=== PATIENT | male | born 1995 | race Caucasian/White ===

== ENCOUNTER → 2021-12-16 02:29 | Outpatient (CLI) | payer BC, SELFPAY ==
[2021-12-16 15:13] LABS: SARS-CoV-2 RNA PCR Negative
== END ==
PROVIDERS: Visit Provider Otolaryngology
DX: Z01.812 Encounter for preprocedural laboratory examination (principal); Z20.822 Contact with and (suspected) exposure to COVID-19
CPT/HCPCS: C9803; U0003; U0005

== ENCOUNTER 2021-12-19 00:27 | Day surgery (SDC) | payer BC, SELFPAY ==
[2021-12-15 14:41] VITALS: BMI 24.3
--- NOTE | 2021-12-15 14:50 | PC.NURSE ---
Report to the Outpatient Waiting Room, entrance under the green pavilion located off [facility], at time 0930 on date 12/19/21 . OR Time: ____1129____. - You and your visitor will be asked a series of questions to screen for COVID 19 for your protection. - A mask is required within the hospital. - Only one visitor is allowed at this time. Patient visitors will be guided where to wait when not with patient. Preoperative COVID Testing Requirements: No COVID Test needed if: (proof is required; if not received patient will have Rapid Test prior to entry) - Patient has received COVID Vaccine at least 14 days prior to procedure date or - Patient has positive COVID test result within last 90 days of surgery date. COVID Test needed if above criteria is not met If not COVID vaccinated a COVID test must be conducted within 72 hours of surgery and patient is asked to isolate self from time of testing until procedure. You will go to the [employer] [facility] for your COVID testing. The [employer] [facility] is located at the corner of [address] [facility]. You will only be called if COVID results are positive and your surgeon may reschedule your elective surgery date. Patients may have clear liquids (water, carbonated beverages, clear teas, apple juice) until 3 hours prior to surgery with a maximum of 20 ounces. - No food from midnight until time of surgery - Infants may have breast milk until 4 hours before surgery, formula 6 hours prior to surgery. - Children will be allowed to drink immediately following surgery. If applicable, please bring a bottle or sippy cup to assist with drinking. Juice, water, soda, and popsicles are readily available. For infants on formula, please bring formula the day of surgery. Pacifiers are allowed. Take the following medications with a SIP of water the morning of surgery: __if needed nasal spray Medications to discontinue per physician __any vitamins or suppplement 3 days prior to surgery Date to take last dose Please no make-up, nail serbian, hairspray, perfume, deodorant, or body powder the day of surgery. No jewelry (including any body piercings) or valuables the day of surgery, leave them at home. Please take a shower or bath the night before, or the morning of, surgery with an antibacterial soap. Wear comfortable, loose fitting clothing. Children are encouraged to wear pajamas. - Jewelry must be removed prior to entering the operating room. Rings and piercings that are not removed may be cut off. - The hospital will not accept responsibility for valuables. - Please leave all valuables, including medications, at home the day of surgery. If you are going home after surgery, a licensed cattle driver must drive you home. - NO public transportation without another adult. - We recommend that an adult stay with you for 24 hours following discharge. - We also recommend that you do not drive, make important decision, drink alcoholic beverages, or take any drugs that were not prescribed by your health care provider for at least 24 hours after your discharge time. For Pediatric surgeries, we recommend two adults accompany the child home (only one inside the building at this time). Follow any additional instructions given to you from your surgeon. Telephone instructions given to __patient and asked if any additional questions and then verbalized understanding. Patient advised to call surgeon office or pre surgery nurse liaison [phone] if any additional questions.
--- NOTE | 2021-12-18 09:21 | PM.IMHP ---
H&P: HPI History of Present Illness Date/Time: 12/18/21 09:21 Chief Complaint: nasal obstruction nasal congestion nasopharyngeal cyst adenoid hypertrophy septal deviation turbinate hypertrophy Narrative: patient presents for planned surgical procedure no change in symptoms no change in history Review of Systems Constitutional: Constitutional: Denies fatigue, Denies fever(s) and Denies lethargy Eyes: Eyes: Denies blurry vision and Denies change in vision ENT: Reports as per HPI Cardiovascular: Cardiovascular: Denies chest pain Respiratory: Respiratory: Denies cough Endocrine: Endocrine: Denies fatigue Hematologic/Lymphatic: Hematologic/Lymphatic: Denies easy bleeding, Denies easy bruising and Denies lymphadenopathy Allergic/Immunologic: Allergic/Immunologic: Denies seasonal rhinorrhea [facility] Social History Social History Smoking status: Never smoker Second hand tobacco smoke exposure: No Alcohol intake: never Substance use: never Substance use type: does not use Spiritual care concerns: No Meds Home Medications and Allergies Home Medications Medication Instructions Recorded Confirmed Type fluticasone propionate 50 2 spray INTRANASAL BID #16 ml 11/12/21 12/15/21 Rx mcg/actuation nasal spray,suspension Allergies Allergy/AdvReac Type Severity Reaction Status Date / Time No Known Allergies Allergy Mild Verified 12/15/21 14:33 Exam Const: General: cooperative, healthy appearing, comfortable, well developed and alert HENMT: Head: normal to inspection, normocephalic and atraumatic Ears: hearing grossly normal bilaterally, external ears normal, TM's normal bilaterally and EAC's normal General nose exam: Normal external nose present, Normal nares present, No nasal polyps present, mucous membranes and turbinates abnormal, abnormal septum and Other nasal findings present ( Septal deviation turbinate hypertrophy) Face and sinus: normal facial exam Mouth: Yes Normal oral and palatal mucosa present, Yes lip normal, Yes tongue normal, Yes oropharynx normal and Yes moist mucous membranes Teeth and gingiva: dentition normal and gingiva normal Throat: posterior oropharynx normal, tonsils normal and uvula midline Eyes: General: appearance normal, both eyes and all related structures Periorbital: periorbital findings normal Eyelids: eyelids normal Conjunctivae: conjunctivae normal Sclera: sclerae normal Neck: Neck: normal visual inspection, full ROM and no lymphadenopathy Thyroid: thyroid normal Lymphatic: no lymphadenopathy noted Resp: Effort & Inspection: normal respiratory effort and able to speak in complete sentences Cardio: Jugular venous distension: no JVD Neuro: Cranial nerves: Yes CN's II-XII intact bilaterally Assessment and Plan Assessment and plan (1) Adenoid hypertrophy: Code(s): J35.2 - Hypertrophy of adenoids Status: Acute Assessment and Plan: plan is for the operating room endoscopic assisted septoplasty inferior turbinate reduction with outfracture resection of nasopharyngeal cysts/adenoid tissue transnasally. Will need suction Bovie electrocautery. Total operative time 1:00 a.m.. Risks were discussed including bleeding infection damage to any structure from the clavicle up. Septal perforation postoperative bleeding postoperative pain need for postoperative pain medication need for time off work need for further procedures CSF leak brain damage blindness change in vision. Patient voiced understanding to all these risks to the potential benefits to any cost associated with this. (2) Pharyngeal or nasopharyngeal cyst: Code(s): J39.2 - Other diseases of pharynx Status: Acute (3) Hypertrophy of both inferior nasal turbinates: Code(s): J34.3 - Hypertrophy of nasal turbinates Status: Acute (4) Nasal septal deviation: Code(s): J34.2 - Deviated nasal septum
[2021-12-19] VITALS (11 sets, daily range): BP systolic 109–146; BP diastolic 55–89; PULSE 69–94; RESP 12–16; TEMP 36.2–36.7; O2SAT 95–100
--- NOTE | 2021-12-19 07:13 | WPDHPUPDATE1 ---
History and Physical Update Update Date/Time: 12/19/21 07:13 History and Physical has been reviewed, including an updated exam of the patient. There are NO changes in the patient's condition. Risks, benefits, and alternatives have been discussed and questions answered. Patient agrees to proceed with procedure.
[2021-12-19] MEDS: ACETAMINOPHEN 500 MG TABLET 1000 MG PO (10:02)
[2021-12-19] MEDS: LACTATED RINGERS 1,000 ML 30 ML IV CONT ×2 (10:03→12:40)
--- NOTE | 2021-12-19 10:04 | P.PNAN_ITS ---
Anes - Initial Pre Proc Eval Procedure: Operation Date: 12/19/21 11:30 Proposed Procedures p Resection Nasopharyngeal Cyst, Bilateral Inferior Turbinectomy, - Edmar Pandey MD s Septoplasty, - Edmar Pandey MD s Adenoidectomy - Edmar Pandey MD Date/Time: 12/19/21 10:04 Surgeon: Edmar Pandey MD Pre Op Diagnosis: nasal pharyngeal cyst Patient Data Age: 26 Gender: M Height: 1.78 m Weight: 76.9 kg Last Vital Signs Temp 36.7 C 12/19/21 09:58 Pulse 81 12/19/21 09:58 Resp 16 12/19/21 09:58 BP 146/89 H 12/19/21 09:58 Pulse Ox 100 12/19/21 09:58 Allergies Allergy/AdvReac Type Severity Reaction Status Date / Time No Known Allergies Allergy Mild Verified 12/19/21 09:55 Home Medications Medication Instructions Recorded Confirmed Type fluticasone propionate 50 2 spray INTRANASAL BID #16 ml 11/12/21 12/19/21 Rx mcg/actuation nasal spray,suspension Patient hx anesthesia problems: none Family hx anesthesia problems: none Results Review: All pre-operative results and documents have been reviewed as part of the pre-operative evaluation. [facility] Social History Social History Smoking status: Never smoker Second hand tobacco smoke exposure: No Alcohol intake: never Substance use: never Substance use type: does not use Living arrangements: with family Spiritual care concerns: No Anes - Eval Final PreProcedure Day of Procedure 12/19/21 10:04 Patient weight: normal Heart: regular rate and rhythm Lungs: clear to auscultation Airway: Mallampati scale class 1 Neurological: alert and oriented Last oral intake: >/= 8 hours ASA classification: I Emergent: no Anesthetic plan: proceed Anesthesia type and monitoring: general ETT and standard monitoring Results Review: All pre-operative results and documents have been reviewed as part of the pre-operative evaluation. Informed Consent: The patient's anesthetic plan and its attendant risks and benefits were discussed with the patient/family/POA. Questions were solicited and answers provided to the satisfaction of the patient/family/POA.
[2021-12-19] MEDS: ceFAZolin 2 GM/D5W 50 ML 2 GM/50 ML BAG IVPB (10:48)
[2021-12-19] MEDS: OXYMETAZOLINE HCL 0.05% NAS 15 ML BTL (*BKC) 1 SPRAY NASAL (10:48)
[2021-12-19] MEDS: LIDO 1%/EPINEPHRINE 1:100,000 50 ML VIAL INFILTRATE (10:49)
--- NOTE | 2021-12-19 12:56 | W.PM.PROC2 ---
Procedure Note - Detailed Date of Procedure 12/19/21 Pre-op Diagnosis Adenoid hypertrophy, nasal obstruction, nasal congestion, septal deviation, inferior turbinate hypertrophy Post-op Diagnosis same Procedure Performed Septoplasty endoscopic assisted inferior turbinate submucosal reduction with outfracture transnasal adenoidectomy/resection of nasopharyngeal lesion Surgeon Edmar Pandey MD Anesthesia general Indications See above Findings Severely hypertrophied adenoid pad 1st lesion biopsied resected mulberry tips hypertrophied turbinates well reduced left septal deviation straightened Description of Procedure Patient correctly identified consent verified. Patient brought operating room. Time-out performed. General anesthesia induced. Endotracheal tube secured. Afrin-soaked pledgets placed. Patient prepped and draped. Second time-out performed. Headlight utilized Afrin-soaked pledgets removed Varghese incision made left-sided following injection of 8 cc of 1% lidocaine 1 100,000 parts epinephrine and bilateral nasal septum. [place] incision made submucoperichondrial flap elevated using 7 [place] suction septum transected using osteotome right-sided nasal septal flap elevated deviated septum removed using combination of osteotome Melquiades Sousa forceps and Fatmata forceps. Jozef incision closed left-sided perforation no rec common right-sided perforation Jozef incision closed with 3 interrupted 5 0 fast gut sutures. Turbinates entered using 2 mm blade reduced in the submucoperichondrial plane. This occurred after injection of 1% lidocaine with 1 100,000 parts epinephrine into each head of the anterior turbinate anterior inferior turbinate. Again this was bilateral procedure. Debrided submucosally outfractured using [place] elevator mulberry tips cauterized using Bovie suction electrocautery at a setting of 10. Large adenoid pad biopsied. Reduced using 4 mm microdebrider blade hemostasis achieved using suction Bovie electrocautery setting of 20. Hemostasis was adequate. Bilateral nasal passages suctioned Molina splints placed airways trimmed they were covered in mupirocin. Sutured anteriorly using a mattress 3-0 nylon suture. I performed all dictated portions of the procedure. There were no complications. Total blood loss approximately 25-50 cc. Care the patient was turned over to Anesthesiology. Estimated Blood Loss 50 Drains No Packing No Pathology yes Complications No immediate complications Condition stable Disposition PACU
== END 2021-12-19 14:26 | disposition home or self-care (01) ==
PROVIDERS: Visit Provider Otolaryngology
PROC: (CPT 30520; principal; 2021-12-19 11:30)
PROC: (CPT 30520; 2021-12-19 11:30)
PROC: (CPT 30520; 2021-12-19 11:30)
DX: J35.2 Hypertrophy of adenoids (principal); J31.2 Chronic pharyngitis; J34.3 Hypertrophy of nasal turbinates; R09.81 Nasal congestion; J34.89 Other specified disorders of nose and nasal sinuses
CPT/HCPCS: 30520; 30140; 42999; 88302; 88305; A9270; C9803; J0330; J0690; J1100; J2250; J2405; J2704; J3010; J7120; U0003; U0005